=== PATIENT | male | born 1985 | race African-American/Black ===

== ENCOUNTER 2016-05-28 08:32 | Emergency (ER) | payer OTHER ==
[~2016-05-28] VITALS: Ht 172.7 cm; Wt 75.0 kg
[~2016-05-28 08:32] MED LIST: IBUP800T23 PO
[2016-05-28 08:34] VITALS: BP 137/63; PULSE 78; RESP 20; TEMP 98; O2SAT 99
[2016-05-28] MEDS ORDERED: PROPARACAINE HCL 0.5% OPHT SOLN 15 ML BTL EACH EYE ONE (09:45)
[2016-05-28] MEDS ORDERED: IBUPROFEN 800 MG TAB PO ONE (09:45)
--- NOTE | 2016-05-28 09:47 | PD ---
HPI Chief Complaint: Eye Problems/Injury Time Seen by Provider: 09:44 Travel History International Travel<30 days: No Contact w/Intl Traveler<30days: No Traveled to known affect area: No History of Present Illness HPI 31-year-old male presents to the emergency department for evaluation of left eye pain. Patient states he has had eye pain since October 2015. However, it worsened this morning. He states he was taking ibuprofen for his eye pain, but he ran out 2 days ago. He believes this is why he is having worsening eye pain at this time. Patient states he sees Dr. Stewart, shoe parts caser. Patient denies any recent injury to the eye. Patient denies any chronic medical problems. He takes no prescribed medications. He states that Dr. Stewart states he has some scar tissue in the left eye from a previous abrasion from glass. This is from October 2015. [facility] Past Medical History Diminished Hearing: No Past Surgical History Oral Surgery: Yes (WISDOM TEETH) Social History Alcohol Use: No (OCCASIONAL) Tobacco Use: No Substance Use: Yes (MARIJUANA ) Allergies-Medications (Allergen,Severity, Reaction): Coded Allergies: No Known Allergies (Verified , 04/09/16) Reported Meds & Prescriptions Reported Meds & Active Scripts Active Reported Ibuprofen 800 Mg Tab 800 Mg PO Q6HR PRN Review of Systems Except as stated in HPI: all other systems reviewed are Neg Physical Exam Narrative GENERAL: Well-developed well-nourished male patient, ambulatory. Afebrile. SKIN: Warm and dry. HEAD: Normocephalic. Atraumatic. ENT: Mucosa pink and moist. No erythema or exudates. No uvular edema. No uvular , palatal, or tonsillar deviation. Airway patent. Nasal turbinates appear normal without nasal blood, purulent drainage or septal hematoma. Bilateral tympanic membranes are clear without erythema or perforation. EYES: No scleral icterus. No injection or drainage. PERRLA. EOM intact. Fluorescein examination is negative. No hyphema. Visual acuity is 20/40 in the right eye and 20/30 in the left eye. IOP is 22 in the right eye and 8 in the left eye. No foreign body is seen on upper lid eversion. No photophobia. NECK: Supple, trachea midline. No JVD or lymphadenopathy. CARDIOVASCULAR: Regular rate and rhythm without murmurs, gallops, or rubs. RESPIRATORY: Breath sounds equal bilaterally. No accessory muscle use. Lungs sounds are clear to auscultation. GASTROINTESTINAL: Abdomen soft, non-tender, nondistended. MUSCULOSKELETAL: No cyanosis, or edema. BACK: Nontender without obvious deformity. No CVA tenderness. Data Data Last Documented VS Vital Signs Date Time Temp Pulse Resp B/P Pulse Ox O2 Delivery O2 Flow Rate FiO2 05/28/16 08:34 98.0 78 20 137/63 99 Orders Proparacaine 0.5% Opth Soln (Alcaine 0.5 (05/28/16 09:45) Ibuprofen (Motrin) (05/28/16 09:45) [facility] Medical Decision Making Medical Screen Exam Complete: Yes Emergency Medical Condition: Yes Medical Record Reviewed: Yes Differential Diagnosis chronic eye pain versus abrasion versus iritis versus foreign body versus conjunctivitis Narrative Course 31-year-old male presents to the emergency department for evaluation of chronic eye pain since October 2015 who sees shoe parts caser, Dr. Stewart. However, pain has worsened this morning due to being out of ibuprofen. Ibuprofen 800 mg by mouth is given. Fluorescein examination is negative. IOP is 22 in the right eye and 8 in the left eye. Visual acuity is 20/40 in the right eye and 20/30 in the left eye. Patient has been having the same eye pain since October 2015. I do not see any acute abnormality at this time. I instructed the patient to follow back up with Dr. Stewart. He is to call her office today for an appointment. He'll be discharged with a prescription for ibuprofen. Patient does report a decrease in pain since taking the ibuprofen here in the emergency department. Patient is agreeable with plan. He is to return for any acute worsening of symptoms. The patient was discharged in stable condition with instructions, including return instructions and follow up instructions. Diagnosis Primary Impression: History of eye pain Additional Impression: Eye irritation Referrals: Skylar Stewart MD call for appointment Patient Instructions: Eye Pain (ED), General Instructions Additional Instructions: Take ibuprofen as directed as needed with food for pain. Follow-up with Dr. Stewart. Return to the emergency department for any acute worsening of symptoms. Med/Other Pt SpecificInfo: Prescription(s) given Scripts Ibuprofen 800 Mg [id number] Mg PO Q6HR PRN (PAIN) #40 TAB Ref 0 Prov:Flor Goodrich 05/28/16 Disposition: 01 DISCHARGE HOME Condition: Stable Flor Goodrich May 28, 2016 09:47
[2016-05-28] MEDS ORDERED: IBUP800T23 PO (10:22)
== END 2016-05-28 10:33 | disposition home or self-care (01) ==
LOC: NEPB 08:32
DX: H57.12 Ocular pain, left eye (principal)
CPT/HCPCS: 99283

== ENCOUNTER 2016-07-07 16:33 | Emergency (ER) | payer SELFPAY ==
[~2016-07-07] VITALS: Ht 172.7 cm; Wt 68.0 kg
[2016-07-07 16:34] VITALS: BP 133/71; PULSE 82; RESP 15; TEMP 98; O2SAT 100
--- NOTE | 2016-07-07 16:52 | PD ---
HPI . ate a lady bug Chief Complaint: GI Complaint Time Seen by Provider: 16:52 Travel History International Travel<30 days: No Contact w/Intl Traveler<30days: No Traveled to known affect area: No History of Present Illness HPI 31-year-old male with no significant past medical history here with complaints of swallowing of a bug earlier today. Patient said immediately after swallowing the bug he started vomiting. He wants something to settle his stomach. He has not had any further episodes of vomiting. He is resting in the bed comfortably. He has no other complaints. He wants to know if he will be okay since he ate a bug. [facility] Past Medical History Medical History: Denies Significant Hx Diminished Hearing: No Tetanus Vaccination: > 5 Years Past Surgical History Oral Surgery: Yes (WISDOM TEETH) Social History Alcohol Use: Yes (OCCASIONAL) Tobacco Use: No Substance Use: Yes (MARIJUANA ) Allergies-Medications (Allergen,Severity, Reaction): Coded Allergies: No Known Allergies (Verified , 07/07/16) Reported Meds & Prescriptions Reported Meds & Active Scripts Active Review of Systems General / Constitutional: No: Fever Eyes: No: Visual changes HENT: No: Headaches Cardiovascular: No: Chest Pain or Discomfort Respiratory: No: Shortness of Breath Gastrointestinal: Positive: Nausea, No: Abdominal Pain Genitourinary: No: Dysuria Musculoskeletal: No: Pain Skin: No Rash Neurologic: No: Weakness Psychiatric: No: Depression Endocrine: No: Polydipsia Hematologic/Lymphatic: No: Easy Bruising Physical Exam Narrative GENERAL: AAO x 3, no acute distress, Well-nourished, well-developed patient. Patient sitting comfortably in the bed rubbing his genitals. SKIN: Warm and dry. No visible rashes or bruising. HEAD: Normocephalic and atraumatic. EYES: No scleral icterus. No injection or drainage. EOM intact, PERRLA ENT: No nasal drainage noted. Mucous membranes pink. Airway patent. No abnormality in the pharynx. NECK: Supple, trachea midline. No JVD. CARDIOVASCULAR: Regular rate and rhythm without murmurs, gallops, or rubs. RESPIRATORY: Breath sounds equal bilaterally. No accessory muscle use. No rhonchi or rales. GASTROINTESTINAL: Abdomen soft, non-tender, nondistended. EXTREMITIES: No cyanosis or edema. BACK: Nontender without obvious deformity. No CVA tenderness. PSYCH: AAO x 3, normal affect. Data Data Last Documented VS Vital Signs Date Time Temp Pulse Resp B/P Pulse Ox O2 Delivery O2 Flow Rate FiO2 07/07/16 16:34 98.0 82 15 133/71 100 MDM Medical Decision Making Medical Screen Exam Complete: Yes Emergency Medical Condition: Yes Medical Record Reviewed: Yes Differential Diagnosis Nausea, less likely acute abdomen, less likely gastroenteritis Narrative Course 31-year-old male with no significant past medical history here with complaints of swallowing of a bug earlier today. Patient said immediately after swallowing the bug he started vomiting. He wants something to settle his stomach. He has no other complaints. He wants to know if he will be okay since he ate a bug. Patient seen and examined. He is resting comfortably in bed and has no apparent distress. I've explained to him that more than likely he is just mentally upset that he ate a bug. I've explained to him that people in other countries eat bugs as their meals. I doubt he will suffer any type of unfavorable outcome secondary this bug ingestion. His abdominal exam is benign. He does not have any signs of acute abdomen. Will provide him with Zofran upon discharge. Advise follow-up with primary care provider. Patient verbalized understanding of instructions, questions were answered, and thanked me for their care. I advised them if their condition worsens, please return to the nearest emergency room for further care. Diagnosis Primary Impression: Nausea Patient Instructions: General Instructions Additional Instructions: Please return to emergency department if your symptoms return or worsen. Follow up with your primary care provider. Take medications as prescribed. Med/Other Pt SpecificInfo: Prescription(s) given Disposition: 01 DISCHARGE HOME Condition: Stable Yumiko Lomax Jul 07, 2016 16:52
[2016-07-07] MEDS ORDERED: ZOFR4TAB3 SL (17:03)
== END 2016-07-07 17:47 | disposition home or self-care (01) ==
LOC: NEPD 16:33
DX: R11.2 Nausea with vomiting, unspecified (principal); T18.8XXA Foreign body in other parts of alimentary tract, initial encounter; X58.XXXA Exposure to other specified factors, initial encounter; Y93.9 Activity, unspecified; Y92.9 Unspecified place or not applicable; Y99.9 Unspecified external cause status
CPT/HCPCS: 99283